=== PATIENT | male | born 1945 | race Asian ===

== ENCOUNTER 2022-11-17 04:13 | Day surgery (SDC) | payer OTHER ==
[2022-11-16 15:29] VITALS: BMI 22.7
[2022-11-17 10:23] VITALS: TEMP 98
[2022-11-17 15:11] VITALS: BP 124/79; PULSE 68; RESP 17
== END 2022-11-17 11:10 | disposition home or self-care (01) ==
LOC: JASU-ENDO 04:13
PROVIDERS: ATTEND Internal Medicine Gastroenterology
PROC: 0D5L8ZZ Destruction of Transverse Colon, Via Natural or Artificial Opening Endoscopic (ICD-10-PCS; 2022-11-17)
PROC: 0DBP8ZX Excision of Rectum, Via Natural or Artificial Opening Endoscopic, Diagnostic (ICD-10-PCS; 2022-11-17)
PROC: 0DB98ZX Excision of Duodenum, Via Natural or Artificial Opening Endoscopic, Diagnostic (ICD-10-PCS; 2022-11-17)
PROC: 0DB68ZX Excision of Stomach, Via Natural or Artificial Opening Endoscopic, Diagnostic (ICD-10-PCS; 2022-11-17)
PROC: 0D5K8ZZ Destruction of Ascending Colon, Via Natural or Artificial Opening Endoscopic (ICD-10-PCS; principal; 2022-11-17 10:00)
DX: Z12.11 Encounter for screening for malignant neoplasm of colon (principal); K62.1 Rectal polyp; D12.2 Benign neoplasm of ascending colon; D12.3 Benign neoplasm of transverse colon; K64.8 Other hemorrhoids; K21.9 Gastro-esophageal reflux disease without esophagitis; K44.9 Diaphragmatic hernia without obstruction or gangrene; K31.7 Polyp of stomach and duodenum; K29.50 Unspecified chronic gastritis without bleeding
CPT/HCPCS: 88305-TC; 88342-TC

== ENCOUNTER 2024-02-16 10:21 | Inpatient (IN) | payer OTHER ==
[2024-02-16 11:08] LABS: INR 1.26 (0.83-1.09); PROTHROMBIN TIME (PATIENT) 14.3 SEC (9.7-13.0)
[2024-02-16 11:10] LABS: HEMATOCRIT 40.2 % (35.4-49); HEMOGLOBIN 13.3 G/dL (11.7-16.9); MCH 31.4 pg (25.7-33.7); MCHC 33.1 g/dl (32.0-35.9); MEAN CELL VOLUME 94.7 fl (80-96); MEAN PLT VOLUME 7.7 fl (7.5-11.1); PLATELET COUNT 243.4 10^3/uL (134-434); RBC 4.24 10^6/uL (4.00-5.60); RDW 14.2 % (11.9-15.9); WHITE BLOOD COUNT 4.9 10^3/uL (4.0-10.8)
[2024-02-16 11:11] LABS: ACTIVATED PTT 34.4 SECONDS (25.2-36.5)
[2024-02-16 11:15] LABS: PLATELET ESTIMATE ADEQUATE
[2024-02-16 11:19] LABS: ALBUMIN 4.5 g/dl (3.4-5.0); BILIRUBIN,TOTAL 0.4 mg/dl (0.2-1); CALCIUM 9.1 mg/dl (8.5-10.1); CHOLESTEROL 134 mg/dL (50-200); CREATININE 1.4 mg/dl (0.6-1.3); HDL CHOLESTEROL 51 mg/dL (40-60); LDL CHOLESTEROL (ONLY DFH) 54 mg/dL (5-100); POTASSIUM 4.1 mmol/L (3.5-5.1); TOT PROT 7.3 g/dl (6.4-8.2)
[2024-02-16] MEDS: WARFARIN NA 3 MG TABLET PO SCH (17:36)
[2024-02-16 18:11] VITALS: BMI 21.5
[2024-02-16] MEDS ORDERED: HEPARIN NA (PORCINE) 5,000 UNITS/ML 1ML VIAL IVPUSH PRN ×2 (20:11)
[2024-02-16] MEDS: HEPARIN SOD,PORK IN 0.45% NACL 25,000 UNITS/500 ML INFUS.BAG IVPB SCH (22:00)
[2024-02-16] MEDS: ATORVASTATIN CA 40 MG TABLET (FP) PO SCH (22:01)
[2024-02-16] MEDS: METOPROLOL TARTRATE 25 MG TABLET (FP) PO SCH (22:01)
[2024-02-17 08:27] LABS: BILIRUBIN,TOTAL 0.7 mg/dl (0.2-1); CALCIUM 9.9 mg/dl (8.5-10.1); CREATININE 1.3 mg/dl (0.6-1.3); MAGNESIUM 2.3 mg/dL (1.8-2.4); POTASSIUM 4.4 mmol/L (3.5-5.1); TOT PROT 8.5 g/dl (6.4-8.2)
[2024-02-17 09:09] LABS: HEMOGLOBIN 15.1 GM/dL (11.7-16.9); LYMPH % 22.2 % (8-40); MCH 31.3 pg (25.7-33.7); MCHC 33.7 g/dl (32.0-35.9); MEAN CELL VOLUME 93.1 fl (80-96); MEAN PLT VOLUME 7.8 fl (7.5-11.1); MONO % 8.1 % (3.8-10.2); NEUT % 64.7 % (42.8-82.8); PLATELET COUNT 312 10^3/uL (134-434); RBC 4.83 M/mm3 (4.00-5.60); RDW 14.3 % (11.9-15.9); WHITE BLOOD COUNT 6.9 K/mm3 (4.0-10.0)
[2024-02-17] MEDS: ASPIRIN COATED 81 MG TABLET.EC PO SCH (09:49)
[2024-02-17 11:43] LABS: INR 1.68 (0.83-1.09); PROTHROMBIN TIME (PATIENT) 18.9 SEC (9.7-13.0)
[2024-02-18 08:53] LABS: HEMOGLOBIN 12.8 G/dL (11.7-16.9); MCH 30.4 pg (25.7-33.7); MEAN PLT VOLUME 8.5 fl (7.5-11.1); PLATELET COUNT 250.8 10^3/uL (134-434); RBC 4.21 10^6/uL (4.00-5.60); WHITE BLOOD COUNT 4.8 10^3/uL (4.0-10.8)
[2024-02-18 09:43] LABS: INR 1.83 (0.83-1.09); PROTHROMBIN TIME (PATIENT) 20.5 SEC (9.7-13.0)
[2024-02-19 08:15] LABS: INR 1.71 (0.83-1.09); PROTHROMBIN TIME (PATIENT) 19.2 SEC (9.7-13.0)
[2024-02-19 08:40] LABS: HEMATOCRIT 40.4 % (35.4-49); HEMOGLOBIN 12.7 G/dL (11.7-16.9); MCHC 31.4 g/dl (32.0-35.9); MEAN CELL VOLUME 95.7 fl (80-96); MEAN PLT VOLUME 8.4 fl (7.5-11.1); PLATELET COUNT 264.4 10^3/uL (134-434); RBC 4.22 10^6/uL (4.00-5.60); RDW 15.4 % (11.9-15.9); WHITE BLOOD COUNT 4.4 10^3/uL (4.0-10.8)
[2024-02-19] MEDS: WARFARIN NA 5 MG TABLET PO SCH (17:47)
[2024-02-20 08:31] LABS: HEMATOCRIT 42.7 % (35.4-49); HEMOGLOBIN 13.9 G/dL (11.7-16.9); MCH 31.1 pg (25.7-33.7); MCHC 32.6 g/dl (32.0-35.9); MEAN CELL VOLUME 95.4 fl (80-96); MEAN PLT VOLUME 8.6 fl (7.5-11.1); PLATELET COUNT 243.7 10^3/uL (134-434); RBC 4.48 10^6/uL (4.00-5.60); RDW 14.9 % (11.9-15.9); WHITE BLOOD COUNT 4.8 10^3/uL (4.0-10.8)
[2024-02-20 08:48] LABS: ACTIVATED PTT 65.1 SECONDS (25.2-36.5); INR 1.77 (0.83-1.09); PROTHROMBIN TIME (PATIENT) 19.8 SEC (9.7-13.0)
[2024-02-20 18:35] VITALS: RESP 17
[2024-02-20 21:55] VITALS: PULSE 58
[2024-02-21 07:52] LABS: ACTIVATED PTT 72.4 SECONDS (25.2-36.5); INR 2.16 (0.83-1.09); PROTHROMBIN TIME (PATIENT) 24.1 SEC (9.7-13.0)
[2024-02-21 07:53] LABS: HEMATOCRIT 41.9 % (35.4-49); HEMOGLOBIN 13.1 G/dL (11.7-16.9); MCH 29.9 pg (25.7-33.7); MCHC 31.4 g/dl (32.0-35.9); MEAN CELL VOLUME 95.2 fl (80-96); MEAN PLT VOLUME 7.6 fl (7.5-11.1); PLATELET COUNT 255.1 10^3/uL (134-434); RDW 14.8 % (11.9-15.9); WHITE BLOOD COUNT 4.6 10^3/uL (4.0-10.8)
[2024-02-21 08:26] LABS: CREATININE 1.2 mg/dl (0.6-1.3); POTASSIUM 4.4 mmol/L (3.5-5.1)
[2024-02-21 10:15] VITALS: BP 128/75; TEMP 98.1
== END 2024-02-21 12:28 | disposition home or self-care (01) | DRG 65 ==
LOC: FER 10:21 → FM/S 12:53 → OBSVTOIN 15:27
PROVIDERS: ADMIT Internal Medicine; ATTEND Internal Medicine
DX: I63.89 Other cerebral infarction (principal); Q21.12 Patent foramen ovale; I10 Essential (primary) hypertension; E78.5 Hyperlipidemia, unspecified; R29.810 Facial weakness; R47.81 Slurred speech; R47.1 Dysarthria and anarthria
CPT/HCPCS: 36415; 70450-TC; 70551-TC; 80048; 80053; 80061; 81003; 82272; 82550; 82553; 83036; 83735; 84443; 84484; 85025; 85027; 85610; 85730; 86850; 86900; 86901; 93005; 93306-TC; 93880-TC; 97116-GP; 97162-GP; 99285-25; G0378